=== PATIENT | male | born 1975 | race Caucasian/White ===

== ENCOUNTER 2018-03-02 22:33 | Emergency (ER) | payer MEDICAID ==
[~2018-03-02] VITALS: Ht 165.1 cm; Wt 64.0 kg
[2018-03-03 02:47] VITALS: BP 115/73
== END 2018-03-03 02:48 | disposition home or self-care (01) ==
LOC: ER 22:33
DX: H61.21 Impacted cerumen, right ear (principal); F17.210 Nicotine dependence, cigarettes, uncomplicated
CPT/HCPCS: 69210; 99283